=== PATIENT | male | born 1940 | race Caucasian/White ===

== ENCOUNTER 2016-05-26 02:31 | Emergency (ER) | payer OTHER ==
--- NOTE | 2016-05-26 03:15 | PDOC ---
History of Present Illness - General History Source: Patient Exam Limitations: No Limitations - History of Present Illness Initial Comments: 05/26/16 03:22 The patient is a 76 year old male with past medical history of multiple myeloma and diabetes who presents to the ED via EMS secondary to collapsing near his home about one hour ago. The patient states that he was out drinking with his friends, drank a lot of beer, and was walking up to his home when his legs collapsed. He reports being unable to pick himself up and needed help from EMS. He reports a recent change in his medications for his myeloma, taking steroids, and taking his metformin. In the ED, he complains of bilateral lower extremity tingling in which he attributes to neuropathy. He denies any head trauma or LOC. He denies any recent illness, fever, chills, nausea, vomiting, diarrhea, cough, shortness of breath, chest pain, or urinary symptoms. <India Olson - Last Filed: 05/26/16 03:22> <Silvia Beltre - Last Filed: 05/26/16 23:43> - General Chief Complaint: Injury Stated Complaint: FALL Time Seen by Provider: 05/26/16 02:52 Past History <India Olson - Last Filed: 05/26/16 03:22> - Past Medical History Cancer: Yes (Multiple [id number]) Other medical history: Neuropathy - Immunization History Immunization Up to Date: No - Psycho/Social/Smoking Cessation Hx Suicidal Ideation: No Smoking History: Never smoked Have you smoked in the past 12 months: No Information on smoking cessation initiated: No Hx Alcohol Use: No Drug/Substance Use Hx: No Substance Use Type: Alcohol <Silvia Beltre - Last Filed: 05/26/16 23:43> - Past Medical History Allergies/Adverse Reactions: Allergies Allergy/AdvReac Type Severity Reaction Status Date / Time No Known Allergies Allergy Verified 05/26/16 02:50 Home Medications: Ambulatory Orders Metformin Xr [Glucophage *Xr* -] 500 mg PO BID 05/26/16 Review of Systems - Review of Systems Able to Perform ROS?: Yes Comments:: 05/26/16 03:39 GENERAL/CONSTITUTIONAL: No fever or chills. No weakness. HEAD, EYES, EARS, NOSE AND THROAT: No change in vision. No ear pain or discharge. No sore throat. CARDIOVASCULAR: No chest pain or shortness of breath. RESPIRATORY: No cough, wheezing, or hemoptysis. GASTROINTESTINAL: No nausea, vomiting, diarrhea or constipation. GENITOURINARY: No dysuria, frequency, or change in urination. MUSCULOSKELETAL: No joint or muscle swelling or pain. No neck or back pain. SKIN: No rash NEUROLOGIC: Present: bilateral lower extremity neuropathy No headache, vertigo, loss of consciousness ENDOCRINE: No increased thirst. No abnormal weight change. HEMATOLOGIC/LYMPHATIC: No anemia, easy bleeding, or history of blood clots. ALLERGIC/IMMUNOLOGIC: No hives or skin allergy. All Other Systems: Reviewed and Negative <India Olson - Last Filed: 05/26/16 03:22> *Physical Exam - Vital Signs Last Vital Signs Temp Pulse Resp BP Pulse Ox 97.7 F 59 L 19 105/64 98 05/26/16 02:39 05/26/16 02:39 05/26/16 02:39 05/26/16 02:39 05/26/16 02:39 - Physical Exam Comments: 05/26/16 03:40 GENERAL: Awake, alert, and fully oriented, in no acute distress HEAD: No signs of trauma EYES: PERRLA, EOMI, sclera anicteric, conjunctiva clear ENT: Auricles normal inspection, hearing grossly normal, nares patent, oropharynx clear without exudates. Moist mucosa NECK: Normal ROM, supple, no lymphadenopathy, JVD, or masses LUNGS: Breath sounds equal, clear to auscultation bilaterally. No wheezes, and no crackles HEART: Regular rate and rhythm, normal S1 and S2, no murmurs, rubs or gallops ABDOMEN: Soft, nontender, normoactive bowel sounds. No guarding, no rebound. No masses EXTREMITIES: Normal range of motion, no edema. No clubbing or cyanosis. No cords, erythema, or tenderness NEUROLOGICAL: Cranial nerves II through XII grossly intact. Normal speech, normal gait SKIN: Warm, Dry, normal turgor, no rashes or lesions noted. <India Olson - Last Filed: 05/26/16 03:22> - Vital Signs Last Vital Signs Temp Pulse Resp BP Pulse Ox 97.7 F 59 L 19 105/64 98 05/26/16 02:39 05/26/16 02:39 05/26/16 02:39 05/26/16 02:39 05/26/16 02:39 <Silvia Beltre - Last Filed: 05/26/16 23:43> Medical Decision Making - Medical Decision Making 05/26/16 23:41 Pt comes drunk and unstable. He sobered up in the ER, and was discharged home in the AM. Exam normal. He never fell; he just slumped to the ground, no bodily injuries; nothing to xray/image. No need for labs. <Silvia Beltre - Last Filed: 05/26/16 23:43> *DC/Admit/Observation/Transfer - Attestations Scribe Attestion: 05/26/16 03:40 Documentation prepared by India Olson, acting as medical oncologist for Silvia Beltre MD. <India Olson - Last Filed: 05/26/16 03:22> - Discharge Dispostion Admit: No <Silvia Beltre - Last Filed: 05/26/16 23:43> Diagnosis at time of Disposition: Alcohol abuse - Discharge Dispostion Disposition: HOME Condition at time of disposition: Fair - Referrals Referrals: Moiz Jordan MD [Primary Care Provider] - - Patient Instructions Printed Discharge Instructions: Neuropathic Pain
[2016-05-26 03:33] VITALS: BP 105/64; PULSE 59; TEMP 97.7; BMI 26.6
== END 2016-05-26 06:23 | disposition home or self-care (01) ==
LOC: JER 02:31
DX: F10.10 Alcohol abuse, uncomplicated (principal); E11.9 Type 2 diabetes mellitus without complications; Z79.84 Long term (current) use of oral hypoglycemic drugs; Z85.79 Personal history of other malignant neoplasms of lymphoid, hematopoietic and related tissues
CPT/HCPCS: 99281-25

== ENCOUNTER 2022-12-14 08:12 | Day surgery (SDC) | payer OTHER ==
[2022-12-14 09:21] LABS: BASO % 1.1 % (0-2.0); EOS % 2.7 % (0-4.5); HEMATOCRIT 32.9 % (35.4-49); HEMOGLOBIN 10.9 GM/dL (11.7-16.9); LYMPH % 16.7 % (8-40); MCH 27.9 pg (25.7-33.7); MCHC 32.9 g/dl (32.0-35.9); MEAN CELL VOLUME 84.8 fl (80-96); MEAN PLT VOLUME 6.3 fl (7.5-11.1); MONO % 15.9 % (3.8-10.2); NEUT % 63.6 % (42.8-82.8); PLATELET COUNT 413 10^3/uL (134-434); RBC 3.89 M/mm3 (4.00-5.60); RDW 17.9 % (11.9-15.9); WHITE BLOOD COUNT 3.6 K/mm3 (4.0-10.0)
[2022-12-14 09:30] VITALS: BP 159/59; PULSE 65; RESP 18
[2022-12-14] MEDS ORDERED: diphenhydrAMINE HCL 25 MG CAPSULE (FP) PO ONE (09:30)
[2022-12-14] MEDS ORDERED: DEXAMETHASONE 2 MG TABLET PO ONE (09:30)
[2022-12-14] MEDS ORDERED: DEXAMETHASONE 8 MG, DEXAMETHASONE 2 MG PO ONE (09:30)
[2022-12-14] MEDS ORDERED: ACETAMINOPHEN 325 MG TABLET (FP) PO ONE (09:30)
[2022-12-14 09:36] LABS: POTASSIUM 4.4 mmol/L (3.5-5.1)
[2022-12-14 09:38] LABS: CALCIUM 8.8 mg/dL (8.5-10.1)
[2022-12-14 09:42] LABS: CREATININE 0.9 mg/dL (0.55-1.3)
[2022-12-14 09:45] LABS: BILIRUBIN,TOTAL 0.5 mg/dL (0.2-1); TOT PROT 6.8 g/dl (6.4-8.2)
[2022-12-14 09:58] LABS: BILIRUBIN,DIRECT 0.1 mg/dL (0.0-0.2)
[2022-12-14] MEDS ORDERED: DARATUMUMAB-HYALURONIDASE-FIHJ (FASPRO) 15 ML VIAL SQ ONE (10:00)
[2022-12-14 10:49] VITALS: TEMP 98.1
[2022-12-18 08:06] LABS: FREE KAP CHN UR 15.06 mg/L (1.17-86.46); KAPPA LAMBDA RATIO URIN 5.56 (1.83-14.26)
== END 2022-12-14 11:10 | disposition home or self-care (01) ==
LOC: JONCCHEMO 08:12 → J7W 08:13 → JONCCHEMO 11:10
PROVIDERS: ATTEND Internal Medicine Hematology & Oncology
DX: Z51.11 Encounter for antineoplastic chemotherapy (principal); C90.00 Multiple myeloma not having achieved remission
CPT/HCPCS: 36415; 80048; 80076; 82784; 83883; 84155; 84165; 85025; 96401; J9144

== ENCOUNTER 2023-01-11 07:51 | Day surgery (SDC) | payer OTHER ==
[2023-01-11] MEDS ORDERED: DEXAMETHASONE 8 MG, DEXAMETHASONE 2 MG PO ONE (08:15)
[2023-01-11] MEDS ORDERED: ACETAMINOPHEN 325 MG TABLET (FP) PO ONE (08:15)
[2023-01-11] MEDS ORDERED: diphenhydrAMINE HCL 25 MG CAPSULE (FP) PO ONE (08:15)
[2023-01-11] MEDS ORDERED: DARATUMUMAB-HYALURONIDASE-FIHJ (FASPRO) 15 ML VIAL SQ ONE (08:45)
[2023-01-11 15:08] VITALS: BP 144/64; PULSE 71; RESP 18
[2023-01-11 15:10] VITALS: TEMP 97.4
== END 2023-01-11 10:00 | disposition home or self-care (01) ==
LOC: JONCCHEMO 07:51 → J7W 07:52 → JONCCHEMO 10:00
PROVIDERS: ATTEND Internal Medicine Hematology & Oncology
DX: Z51.11 Encounter for antineoplastic chemotherapy (principal); C90.00 Multiple myeloma not having achieved remission
CPT/HCPCS: 96401; J9144

== ENCOUNTER 2023-02-08 08:03 | Day surgery (SDC) | payer OTHER ==
[2023-02-08] MEDS ORDERED: diphenhydrAMINE HCL 25 MG CAPSULE (FP) PO ONE (09:30)
[2023-02-08] MEDS ORDERED: ACETAMINOPHEN 325 MG TABLET (FP) PO ONE (09:30)
[2023-02-08] MEDS ORDERED: DEXAMETHASONE 8 MG, DEXAMETHASONE 2 MG PO ONE (09:30)
[2023-02-08] MEDS ORDERED: DARATUMUMAB-HYALURONIDASE-FIHJ (FASPRO) 15 ML VIAL SQ ONE (10:00)
[2023-02-08 14:32] VITALS: BP 135/70; PULSE 70; RESP 18; TEMP 97.9
== END 2023-02-08 09:45 | disposition home or self-care (01) ==
LOC: JONCCHEMO 08:03 → J7W 08:05 → JONCCHEMO 09:45
PROVIDERS: ATTEND Internal Medicine Hematology & Oncology
DX: Z51.11 Encounter for antineoplastic chemotherapy (principal); C90.00 Multiple myeloma not having achieved remission
CPT/HCPCS: 96401; J9144

== ENCOUNTER 2023-03-08 08:18 | Day surgery (SDC) | payer OTHER ==
[2023-03-08] MEDS ORDERED: diphenhydrAMINE HCL 25 MG CAPSULE (FP) PO ONE (10:00)
[2023-03-08] MEDS ORDERED: ACETAMINOPHEN 325 MG TABLET (FP) PO ONE (10:00)
[2023-03-08] MEDS ORDERED: DEXAMETHASONE 8 MG, DEXAMETHASONE 2 MG PO ONE (10:00)
[2023-03-08] MEDS ORDERED: DARATUMUMAB-HYALURONIDASE-FIHJ (FASPRO) 15 ML VIAL SQ ONE (10:30)
[2023-03-08 12:19] VITALS: BP 164/72; PULSE 56; RESP 18; TEMP 98.2
== END 2023-03-08 10:00 | disposition home or self-care (01) ==
LOC: JONCCHEMO 08:18 → J7W 08:19 → JONCCHEMO 10:00
PROVIDERS: ATTEND Internal Medicine Hematology & Oncology
DX: Z51.11 Encounter for antineoplastic chemotherapy (principal); C90.00 Multiple myeloma not having achieved remission
CPT/HCPCS: 96401; J9144

== ENCOUNTER 2023-04-05 08:16 | Day surgery (SDC) | payer OTHER ==
[2023-04-05] MEDS: ACETAMINOPHEN 325 MG TABLET (FP) PO ONE (09:33)
[2023-04-05] MEDS: DEXAMETHASONE 8 MG, DEXAMETHASONE 2 MG PO ONE (09:34)
[2023-04-05] MEDS: diphenhydrAMINE HCL 25 MG CAPSULE (FP) PO ONE (09:34)
[2023-04-05] MEDS: DARATUMUMAB-HYALURONIDASE-FIHJ (FASPRO) 15 ML VIAL SQ ONE (09:37)
[2023-04-05 13:12] VITALS: BP 159/43; PULSE 60; RESP 20; TEMP 98
== END 2023-04-05 10:00 | disposition home or self-care (01) ==
LOC: JONCCHEMO 08:16 → J7W 08:17 → JONCCHEMO 10:00
PROVIDERS: ATTEND Internal Medicine Hematology & Oncology
DX: Z51.11 Encounter for antineoplastic chemotherapy (principal); C90.00 Multiple myeloma not having achieved remission
CPT/HCPCS: 96401; J9144

== ENCOUNTER 2023-05-03 08:27 | Day surgery (SDC) | payer OTHER ==
[2023-05-03] MEDS: diphenhydrAMINE HCL 25 MG CAPSULE (FP) PO ONE (09:14)
[2023-05-03] MEDS: ACETAMINOPHEN 325 MG TABLET (FP) PO ONE (09:15)
[2023-05-03] MEDS: DEXAMETHASONE 8 MG, DEXAMETHASONE 2 MG PO ONE (09:15)
[2023-05-03 09:34] VITALS: BP 154/62; PULSE 61; RESP 18; TEMP 97.6
[2023-05-03] MEDS: DARATUMUMAB-HYALURONIDASE-FIHJ (FASPRO) 15 ML VIAL SQ ONE (09:54)
== END 2023-05-03 10:10 | disposition home or self-care (01) ==
LOC: JONCCHEMO 08:27 → J7W 08:28 → JONCCHEMO 10:10
PROVIDERS: ATTEND Internal Medicine Hematology & Oncology
DX: Z51.11 Encounter for antineoplastic chemotherapy (principal); C90.00 Multiple myeloma not having achieved remission
CPT/HCPCS: 96401; J9144

== ENCOUNTER 2023-05-31 09:00 | Day surgery (SDC) | payer OTHER ==
[~2023-05-31 09:00] MED LIST: DARATUMUMAB-HYALURONIDASE-FIHJ (FASPRO) 15 ML VIAL SQ ONE
[2023-05-31] MEDS: diphenhydrAMINE HCL 25 MG CAPSULE (FP) PO ONE (09:01)
[2023-05-31] MEDS: ACETAMINOPHEN 325 MG TABLET (FP) PO ONE (09:01)
[2023-05-31] MEDS: DEXAMETHASONE 8 MG, DEXAMETHASONE 2 MG PO ONE (09:01)
[2023-05-31] MEDS: DARATUMUMAB-HYALURONIDASE-FIHJ (FASPRO) 15 ML VIAL SQ ONE (09:34)
[2023-05-31 15:13] VITALS: BP 143/74; PULSE 69; RESP 18; TEMP 98
== END 2023-05-31 09:50 | disposition home or self-care (01) ==
LOC: JONCCHEMO 09:00 → J7W 09:29 → JONCCHEMO 09:50
PROVIDERS: ATTEND Internal Medicine Hematology & Oncology
DX: Z51.11 Encounter for antineoplastic chemotherapy (principal); C90.00 Multiple myeloma not having achieved remission
CPT/HCPCS: 96401; J9144

== ENCOUNTER 2023-06-28 08:49 | Day surgery (SDC) | payer OTHER ==
[2023-06-28] MEDS: DEXAMETHASONE 8 MG, DEXAMETHASONE 2 MG PO ONE (08:59)
[2023-06-28] MEDS: ACETAMINOPHEN 325 MG TABLET (FP) PO ONE (08:59)
[2023-06-28] MEDS: diphenhydrAMINE HCL 25 MG CAPSULE (FP) PO ONE (08:59)
[2023-06-28] MEDS: DARATUMUMAB-HYALURONIDASE-FIHJ (FASPRO) 15 ML VIAL SQ ONE (09:37)
[2023-06-28 15:01] VITALS: BP 151/83; PULSE 68; RESP 18; TEMP 98.1
== END 2023-06-28 11:17 | disposition home or self-care (01) ==
LOC: JONCCHEMO 08:49 → J7W 09:00 → JONCCHEMO 11:17
PROVIDERS: ATTEND Internal Medicine Hematology & Oncology
DX: Z51.11 Encounter for antineoplastic chemotherapy (principal); C90.00 Multiple myeloma not having achieved remission
CPT/HCPCS: J9144

== ENCOUNTER 2023-07-26 08:14 | Day surgery (SDC) | payer OTHER ==
[2023-07-26] MEDS: ACETAMINOPHEN 325 MG TABLET (FP) PO ONE (08:58)
[2023-07-26] MEDS: diphenhydrAMINE HCL 25 MG CAPSULE (FP) PO ONE (08:59)
[2023-07-26] MEDS: DEXAMETHASONE 8 MG, DEXAMETHASONE 2 MG PO ONE (08:59)
[2023-07-26] MEDS: DARATUMUMAB-HYALURONIDASE-FIHJ (FASPRO) 15 ML VIAL SQ ONE (09:01)
[2023-07-26 09:09] VITALS: BP 155/48; PULSE 78; RESP 20; TEMP 97.1
== END 2023-07-26 09:20 | disposition home or self-care (01) ==
LOC: JONCCHEMO 08:14 → J7W 08:14 → JONCCHEMO 09:20
PROVIDERS: ATTEND Internal Medicine Hematology & Oncology
DX: Z51.11 Encounter for antineoplastic chemotherapy (principal); C90.00 Multiple myeloma not having achieved remission
CPT/HCPCS: 96401; J9144

== ENCOUNTER 2023-08-23 08:15 | Day surgery (SDC) | payer OTHER ==
[2023-08-23] MEDS: diphenhydrAMINE HCL 25 MG CAPSULE (FP) PO ONE (08:50)
[2023-08-23] MEDS: DEXAMETHASONE 8 MG, DEXAMETHASONE 2 MG PO ONE (08:51)
[2023-08-23] MEDS: ACETAMINOPHEN 325 MG TABLET (FP) PO ONE (08:51)
[2023-08-23] MEDS: DARATUMUMAB-HYALURONIDASE-FIHJ (FASPRO) 15 ML VIAL SQ ONE (08:54)
[2023-08-23 16:16] VITALS: BP 139/67; PULSE 66; RESP 18; TEMP 98
== END 2023-08-23 09:15 | disposition home or self-care (01) ==
LOC: JONCNONCHE 08:15 → J7W 08:16 → JONCNONCHE 09:15
PROVIDERS: ATTEND Student in an Organized Health Care Education/Training Program
DX: Z51.11 Encounter for antineoplastic chemotherapy (principal); C90.00 Multiple myeloma not having achieved remission
CPT/HCPCS: 96401; J9144

== ENCOUNTER 2023-09-20 08:24 | Day surgery (SDC) | payer OTHER ==
[2023-09-20] MEDS: diphenhydrAMINE HCL 25 MG CAPSULE (FP) PO ONE (09:11)
[2023-09-20] MEDS: ACETAMINOPHEN 325 MG TABLET (FP) PO ONE (09:12)
[2023-09-20] MEDS: DEXAMETHASONE 8 MG, DEXAMETHASONE 2 MG PO ONE (09:12)
[2023-09-20 09:19] VITALS: BP 135/67; PULSE 73; RESP 20; TEMP 98.7
[2023-09-20] MEDS: DARATUMUMAB-HYALURONIDASE-FIHJ (FASPRO) 15 ML VIAL SQ ONE (09:36)
== END 2023-09-20 10:00 | disposition home or self-care (01) ==
LOC: JONCCHEMO 08:24 → J7W 08:26 → JONCCHEMO 10:00
PROVIDERS: ATTEND Student in an Organized Health Care Education/Training Program
DX: Z51.11 Encounter for antineoplastic chemotherapy (principal); C90.00 Multiple myeloma not having achieved remission
CPT/HCPCS: 96401; J9144

== ENCOUNTER 2023-10-25 08:21 | Day surgery (SDC) | payer OTHER ==
[~2023-10-25 08:21] MED LIST changes: +ACETAMINOPHEN 325 MG TABLET (FP) PO ONE; +DEXAMETHASONE 8 MG, DEXAMETHASONE 2 MG PO ONE; +diphenhydrAMINE HCL 25 MG CAPSULE (FP) PO ONE
[2023-10-25] MEDS: ACETAMINOPHEN 325 MG TABLET (FP) PO ONE (08:58)
[2023-10-25] MEDS: diphenhydrAMINE HCL 25 MG CAPSULE (FP) PO ONE (08:58)
[2023-10-25] MEDS: DEXAMETHASONE 8 MG, DEXAMETHASONE 2 MG PO ONE (08:59)
[2023-10-25] MEDS: DARATUMUMAB-HYALURONIDASE-FIHJ (FASPRO) 15 ML VIAL SQ ONE (09:30)
[2023-10-25 13:47] VITALS: BP 107/50; PULSE 71; RESP 18; TEMP 98
== END 2023-10-25 09:45 | disposition home or self-care (01) ==
LOC: JONCCHEMO 08:21 → J7W 08:21 → JONCCHEMO 09:45
PROVIDERS: ATTEND Student in an Organized Health Care Education/Training Program
DX: Z51.11 Encounter for antineoplastic chemotherapy (principal); C90.00 Multiple myeloma not having achieved remission
CPT/HCPCS: 96401; J9144

== ENCOUNTER 2023-11-22 08:19 | Day surgery (SDC) | payer OTHER ==
[2023-11-22] MEDS: ACETAMINOPHEN 325 MG TABLET (FP) PO ONE (09:02)
[2023-11-22] MEDS: DEXAMETHASONE 8 MG, DEXAMETHASONE 2 MG PO ONE (09:03)
[2023-11-22] MEDS: diphenhydrAMINE HCL 25 MG CAPSULE (FP) PO ONE (09:04)
[2023-11-22] MEDS: DARATUMUMAB-HYALURONIDASE-FIHJ (FASPRO) 15 ML VIAL SQ ONE (09:08)
[2023-11-22 14:23] VITALS: BP 141/69; PULSE 83; RESP 20; TEMP 97.8
== END 2023-11-22 09:30 | disposition home or self-care (01) ==
LOC: JONCCHEMO 08:19 → J7W 08:20 → JONCCHEMO 09:30
PROVIDERS: ATTEND Student in an Organized Health Care Education/Training Program
DX: Z51.11 Encounter for antineoplastic chemotherapy (principal); C90.00 Multiple myeloma not having achieved remission
CPT/HCPCS: 96401; J9144

== ENCOUNTER 2023-12-20 08:37 | Day surgery (SDC) | payer OTHER ==
[2023-12-20] MEDS: DEXAMETHASONE 4 MG TABLET (FP) PO ONE (09:59)
[2023-12-20] MEDS: diphenhydrAMINE HCL 25 MG CAPSULE (FP) PO ONE (10:00)
[2023-12-20] MEDS: ACETAMINOPHEN 325 MG TABLET (FP) PO ONE (10:00)
[2023-12-20] MEDS: DARATUMUMAB-HYALURONIDASE-FIHJ (FASPRO) 15 ML VIAL SQ ONE (10:21)
[2023-12-20 11:22] VITALS: BP 128/56; PULSE 74; RESP 20; TEMP 98.4
== END 2023-12-20 10:30 | disposition home or self-care (01) ==
LOC: JONCCHEMO 08:37 → J7W 08:38 → JONCCHEMO 10:30
PROVIDERS: ATTEND Student in an Organized Health Care Education/Training Program
DX: Z51.11 Encounter for antineoplastic chemotherapy (principal); C90.00 Multiple myeloma not having achieved remission
CPT/HCPCS: 96401; J9144

== ENCOUNTER 2024-01-17 08:42 | Day surgery (SDC) | payer OTHER ==
[2024-01-17] MEDS: diphenhydrAMINE HCL 25 MG CAPSULE (FP) PO ONE (08:46)
[2024-01-17] MEDS: ACETAMINOPHEN 325 MG TABLET (FP) PO ONE (08:46)
[2024-01-17] MEDS: DEXAMETHASONE 4 MG TABLET (FP) PO ONE (08:46)
[2024-01-17] MEDS ORDERED: diphenhydrAMINE HCL 25 MG CAPSULE (FP) PO ONE (09:00)
[2024-01-17] MEDS: DARATUMUMAB-HYALURONIDASE-FIHJ (FASPRO) 15 ML VIAL SQ ONE (09:23)
[2024-01-17 15:18] VITALS: RESP 18; TEMP 97.7
[2024-01-17 15:21] VITALS: BP 143/68; PULSE 71
== END 2024-01-17 09:40 | disposition home or self-care (01) ==
LOC: JONCCHEMO 08:42 → J7W 08:48 → JONCCHEMO 09:40
PROVIDERS: ATTEND Student in an Organized Health Care Education/Training Program
DX: Z51.11 Encounter for antineoplastic chemotherapy (principal); C90.00 Multiple myeloma not having achieved remission
CPT/HCPCS: 96401; J9144

== ENCOUNTER 2024-02-14 08:21 | Day surgery (SDC) | payer OTHER ==
[2024-02-14] MEDS: ACETAMINOPHEN 325 MG TABLET (FP) PO ONE (08:51)
[2024-02-14] MEDS: DEXAMETHASONE 4 MG TABLET (FP) PO ONE (08:51)
[2024-02-14] MEDS: diphenhydrAMINE HCL 25 MG CAPSULE (FP) PO ONE (08:52)
[2024-02-14] MEDS: DARATUMUMAB-HYALURONIDASE-FIHJ (FASPRO) 15 ML VIAL SQ ONE (09:32)
[2024-02-14 15:08] VITALS: BP 150/76; PULSE 83; RESP 20; TEMP 97.9
== END 2024-02-14 09:50 | disposition home or self-care (01) ==
LOC: JONCCHEMO 08:21
PROVIDERS: ATTEND Student in an Organized Health Care Education/Training Program
DX: Z51.11 Encounter for antineoplastic chemotherapy (principal); C90.00 Multiple myeloma not having achieved remission
CPT/HCPCS: 96401; J9144

== ENCOUNTER 2024-04-10 08:30 | Day surgery (SDC) | payer OTHER ==
[2024-04-10] MEDS ORDERED: DEXAMETHASONE 4 MG TABLET (FP) PO ONE (09:00)
[2024-04-10] MEDS: DEXAMETHASONE 8 MG, DEXAMETHASONE 2 MG PO ONE (09:07)
[2024-04-10] MEDS: ACETAMINOPHEN 325 MG TABLET (FP) PO ONE (09:08)
[2024-04-10] MEDS: diphenhydrAMINE HCL 25 MG CAPSULE (FP) PO ONE (09:08)
[2024-04-10] MEDS: DARATUMUMAB-HYALURONIDASE-FIHJ (FASPRO) 15 ML VIAL SQ ONE (09:31)
[2024-04-10 12:24] VITALS: BP 119/61; PULSE 70; RESP 18; TEMP 97.7
== END 2024-04-10 09:50 | disposition home or self-care (01) ==
LOC: JONCCHEMO 08:30
PROVIDERS: ATTEND Internal Medicine Hematology & Oncology
DX: Z51.11 Encounter for antineoplastic chemotherapy (principal); C90.00 Multiple myeloma not having achieved remission
CPT/HCPCS: 96401; J9144

== ENCOUNTER 2024-05-08 08:27 | Day surgery (SDC) | payer OTHER ==
[2024-05-08] MEDS: diphenhydrAMINE HCL 25 MG CAPSULE (FP) PO ONE (08:45)
[2024-05-08] MEDS: DEXAMETHASONE 8 MG, DEXAMETHASONE 2 MG PO ONE (08:46)
[2024-05-08] MEDS: ACETAMINOPHEN 325 MG TABLET (FP) PO ONE (08:46)
[2024-05-08] MEDS: DARATUMUMAB-HYALURONIDASE-FIHJ (FASPRO) 15 ML VIAL SQ ONE (09:58)
[2024-05-08 13:51] VITALS: BP 150/75; PULSE 81; RESP 20; TEMP 98.5
== END 2024-05-08 10:15 | disposition home or self-care (01) ==
LOC: JONCCHEMO 08:27 → J7W 08:32 → JONCCHEMO 10:15
PROVIDERS: ATTEND Internal Medicine Hematology & Oncology
DX: Z51.11 Encounter for antineoplastic chemotherapy (principal); C90.00 Multiple myeloma not having achieved remission
CPT/HCPCS: 96401; J9144

== ENCOUNTER 2024-06-05 08:18 | Day surgery (SDC) | payer OTHER ==
[2024-06-05] MEDS: ACETAMINOPHEN 325 MG TABLET (FP) PO ONE (09:17)
[2024-06-05] MEDS: DEXAMETHASONE 8 MG, DEXAMETHASONE 2 MG PO ONE (09:17)
[2024-06-05] MEDS: diphenhydrAMINE HCL 25 MG CAPSULE (FP) PO ONE (09:17)
[2024-06-05] MEDS: DARATUMUMAB-HYALURONIDASE-FIHJ (FASPRO) 15 ML VIAL SQ ONE (09:44)
[2024-06-05 11:15] VITALS: PULSE 81; RESP 20; TEMP 97.7
[2024-06-05 11:33] VITALS: BP 155/82
== END 2024-06-05 10:00 | disposition home or self-care (01) ==
LOC: JONCCHEMO 08:18 → J7W 09:12 → JONCCHEMO 10:00
PROVIDERS: ATTEND Internal Medicine Hematology & Oncology
DX: Z51.11 Encounter for antineoplastic chemotherapy (principal); C90.00 Multiple myeloma not having achieved remission
CPT/HCPCS: 96401; J9144

== ENCOUNTER 2024-07-31 08:25 | Day surgery (SDC) | payer OTHER ==
[2024-07-31] MEDS: ACETAMINOPHEN 325 MG TABLET (FP) PO ONE (09:24)
[2024-07-31] MEDS: diphenhydrAMINE HCL 25 MG CAPSULE (FP) PO ONE (09:25)
[2024-07-31] MEDS: DEXAMETHASONE 8 MG, DEXAMETHASONE 2 MG PO ONE (09:25)
[2024-07-31] MEDS: CYANOCOBALAMIN (VITAMIN B-12) 1000 MCG/1 ML VIAL SQ ONE (09:26)
[2024-07-31] MEDS: DARATUMUMAB-HYALURONIDASE-FIHJ (FASPRO) 15 ML VIAL SQ ONE (09:29)
[2024-07-31 14:51] VITALS: BP 151/69; PULSE 63; RESP 16; TEMP 98.1
== END 2024-07-31 09:45 | disposition home or self-care (01) ==
LOC: JONCCHEMO 08:25 → J7W 08:27 → JONCCHEMO 09:45
PROVIDERS: ATTEND Internal Medicine Hematology & Oncology
PROC: 3E01305 Introduction of Other Antineoplastic into Subcutaneous Tissue, Percutaneous Approach (ICD-10-PCS; principal; 2024-07-31)
PROC: 3E013GC Introduction of Other Therapeutic Substance into Subcutaneous Tissue, Percutaneous Approach (ICD-10-PCS; 2024-07-31)
DX: Z51.11 Encounter for antineoplastic chemotherapy (principal); C90.00 Multiple myeloma not having achieved remission
CPT/HCPCS: J9144

== ENCOUNTER 2024-09-25 08:25 | Day surgery (SDC) | payer OTHER ==
[~2024-09-25 08:25] MED LIST changes: -ACETAMINOPHEN 325 MG TABLET (FP) PO ONE; +CYANOCOBALAMIN (VITAMIN B-12) 1000 MCG/1 ML VIAL IM ONE; -DARATUMUMAB-HYALURONIDASE-FIHJ (FASPRO) 15 ML VIAL SQ ONE; -DEXAMETHASONE 8 MG, DEXAMETHASONE 2 MG PO ONE; -diphenhydrAMINE HCL 25 MG CAPSULE (FP) PO ONE
[2024-09-25] MEDS: DEXAMETHASONE 8 MG, DEXAMETHASONE 2 MG PO ONE (08:30)
[2024-09-25] MEDS: diphenhydrAMINE HCL 25 MG CAPSULE (FP) PO ONE (08:30)
[2024-09-25] MEDS: ACETAMINOPHEN 325 MG TABLET (FP) PO ONE (08:31)
[2024-09-25] MEDS: CYANOCOBALAMIN (VITAMIN B-12) 1000 MCG/1 ML VIAL SQ ONE (08:32)
[2024-09-25] MEDS: DARATUMUMAB-HYALURONIDASE-FIHJ (FASPRO) 15 ML VIAL SQ ONE (09:06)
[2024-09-25 11:01] VITALS: BP 159/75; PULSE 77; RESP 20; TEMP 97.7
== END 2024-09-25 09:15 | disposition home or self-care (01) ==
LOC: JONCCHEMO 08:25
PROVIDERS: ATTEND Internal Medicine Hematology & Oncology
PROC: 3E01305 Introduction of Other Antineoplastic into Subcutaneous Tissue, Percutaneous Approach (ICD-10-PCS; principal; 2024-09-25)
PROC: 3E013GC Introduction of Other Therapeutic Substance into Subcutaneous Tissue, Percutaneous Approach (ICD-10-PCS; 2024-09-25)
DX: Z51.11 Encounter for antineoplastic chemotherapy (principal); C90.00 Multiple myeloma not having achieved remission
CPT/HCPCS: J9144